=== PATIENT | female | born 1980 | race Caucasian/White ===

== ENCOUNTER → 2020-04-15 | Outpatient (CLI) | payer OTHER ==
--- NOTE | 2020-04-15 15:53 | WOMENS IMAGING REPORT ---
EXAM DESCRIPTION: BILAT SCREENING MAMMO W/CAD IMAGES COMPLETED DATE/TIME: 04/15/2020 3:36 pm REASON FOR STUDY: Z12.31 ENCNTR SCREEN MAMMOGRAM FOR MALIGNANT NEOPLASM OF BREAST Z12.31 ENCNTR SCR EEN MAMMOGRAM FOR MALIGNANT NEOPLASM OF RICK COMPARISON: None. EXAM PARAMETERS: Standard craniocaudal and mediolateral oblique views of each breast recorded using digital acquisition. Read with the assistance of CAD. .[facility] - Culture Kitchen Institutional Cook Version 9.2 LIMITATIONS: None. FINDINGS: No suspicious masses, suspicious calcifications or architectural distortion. No areas of c oncern. IMPRESSION: NEGATIVE MAMMOGRAM. BIRADS 1 BREAST DENSITY: b. There are scattered areas of fibroglandular density. BIRAD: ASSESSMENT: 1 NEGATIVE RECOMMENDATION: ROUTINE SCREENING COMMENT: The patient has been notified of the results by letter per MQSA requirements. Additional no tification policies are in place for contacting patient with suspicious or incomplete findings. Quality ID #[id number]: The [employer] recommends an annual screening mammogram for women aged 40 years or over. This facility utilizes a reminder system to ensure that all patients receive reminder letters, and/or direct phone calls for appointments. This includes reminders for routine scr eening mammograms, diagnostic mammograms, or other Breast Imaging Interventions when appropriate. Th is patient will be placed in the appropriate reminder system. TECHNICAL DOCUMENTATION: FINDING NUMBER: (1) ASSESSMENT: (1) JOB ID: [id number] 2010 [employer]- All Rights Reserved Reading location - IP/workstation name: [email or web address]
--- OUTSIDE RECORDS SUMMARY | 2020-04-16 15:41 | XMS REPORT ---
:1980 Author Organization [facility] Address [address] [address] Care Team Providers Name Role Phone Unavailable Unavailable Unavailable Allergies, Adverse Reactions, Alerts Allergy Name Allergy Status Severity Reaction(s) Onset Inactive Treat ing Comments Type Date Date Clinician Dog Dander Allergy to Active Mild to Eye redness substance moderate House Dust Allergy to Active Mild to Respiratory substance moderate distress Tetracycline Allergy to Active Mild to Facial substance moderate swelling Medications Ordered Filled Start Stop Current Ordering Indication Dosage Frequency Signature Comments Components Medication Medication Date Date Medication? Clinician (SIG) Name Name Zyrtec 10 No Zyrtec 10 mg tablet mg tablet Problems Condition Condition Condition Status Onset Resolution Last Treatin g Comments Name Details Category Date Date Treatment Clinician Date History of History of Problem Active 2019-06 abnormal Abnormal 06-08 cervical Cervical 00:00: Papanicolao Papanicolao 00 u smear u Smear Obesity Obesity Problem Active 2019-06 00:00: 00 Polycystic Polycystic Problem Active 2019-06 ovary Ovary 06-05 syndrome Syndrome 00:00: 00 Allergic Allergic Problem Active 2019-06 rhinitis Rhinitis 06-05 00:00: 00 Prediabetes Prediabetes Problem Active 2019-06 00:00: 00 Procedures Procedure Date / Time Performed Performing Clinician Devic e MAMMO, screening, digital, 2020-04-05 00:00:00 bilateral Leep 2016-06-04 00:00:00 Other 2014-06-04 00:00:00 Eye Surgery 2012-06-04 00:00:00 Tonsillectomy 2009-06-04 00:00:00 Results This patient has no known results. Assessments Condition Name Status Diagnosis Date Treating Clinici an Screening for malignant neoplasm of Active 2020-04-05 1 5:31:56 cervix History of abnormal cervical Active 2020-04-05 15:31:41 Papanicolaou smear Screening mammography Active 2020-04-05 15:32:04 Obesity Active 2020-04-08 08:31:06 Prediabetes Active 2020-04-05 15:34:01 Allergic rhinitis Active 2020-04-05 15:35:25 Polycystic ovary syndrome Active 2020-04-05 15:35:39 Encounters Start End Encounter Admission Attending Care Care Encounter Date/Time Date/Time Type Type Clinicians Facility Department ID 2020-04-05 2020-04-05 Ladonna Medikidz [id number] 00:00:00 00:00:00 Connie, Immediate Immediate & [id number] PA-C: [facility], [address], [place] [id number], Ph. Plan of Treatment Planned Activity Planned Date Details Comments Future Appointment 2020-04-22 08:00:00 Ladonna Orsales, [address] [facility] [address]; , [place] [id number] Social History Smoking Status Start Date Stop Date Never Smoker Vital Signs Vital Name Observation Time Observation Value Comments Height 2020-04-05 00:00:00 69 [in_i] BMI (Body Mass Index) 2020-04-05 00:00:00 34.7 kg/m2 Body Weight 2020-04-05 00:00:00 235 [lb_av] Hospital Discharge Instructions 1. Prediabetes 2. Allergic rhinitis 3. Polycystic ovary syndrome 4. Screening for malignant neoplasmof cervix gynecology referral 5. History of abnormal cervical Papanicolaou smear 6. Screening mammography MAMMO, screening, digital, bilateral - please evaluate. thank you. 7. Obesity Discussion Note: None recorded. Patient educational handouts: No information available.
== END ==
LOC: WI 15:10
PROVIDERS: ATTEND Physician Assistant
DX: Z12.31 Encounter for screening mammogram for malignant neoplasm of breast (principal)
CPT/HCPCS: 77067